=== PATIENT | female | born 1980 | race Caucasian/White ===

== ENCOUNTER 2022-03-25 07:01 | Emergency (ER) | payer OTHER ==
[2022-03-25] MEDS ORDERED: SODIUM CHLORIDE 0.9% 1,000 ML IV STA (07:22)
[2022-03-25] MEDS ORDERED: ONDANSETRON 4 MG/2 ML VIAL IVP STA (07:22)
[2022-03-25 07:24] LABS: BASOPHILS % (AUTO) 0.3 %; EOSINOPHILS % (AUTO) 0.1 %; HCT - HEMATOCRIT 40.8 % (37.0-47.0); HGB - HEMOGLOBIN 13.7 g/dL (12.0-16.0); LYMPHOCYTES # (AUTO) 1.2 10^3/uL (1.5-3.5); MEAN CORPUSCULAR HEMOGLOBIN 29.1 pg (27.0-31.0); MEAN CORPUSCULAR HGB CONC 33.6 g/dL (32.0-36.0); MEAN CORPUSCULAR VOLUME 86.8 fL (81.0-99.0); MONOCYTES # (AUTO) 0.6 10^3/uL (0.0-1.0); MONOCYTES % (AUTO) 3.6 %; NEUTROPHILS # (AUTO) 13.2 10^3/uL (1.5-6.6); PLT - PLATELET COUNT 327 10^3/uL (130-450); RED CELL DISTRIBUTION WIDTH 13.3 % (12.0-15.0); WHITE BLOOD COUNT 15.2 x10^3/uL (4.8-10.8)
--- NOTE | 2022-03-25 07:25 | ED Physician Documentation ---
PD HPI FEMALE - Stated complaint Stated Complaint: VOMITING - Chief complaint Chief Complaint: Abd Pain - History obtained from History obtained from: Patient - Additional information Additional information: Patient is a 41-year-old female with history of endometriosis, presenting for evaluation of nausea and vomiting and lower abdominal cramping. Patient has had the nausea and vomiting since Tuesday. She was able to tolerate p.o. yesterday.However since this morning she has not been able to keep anything down. She reports having a history of hyperemesis with previous pregnancies and has used Zofran and promethazine in the past. She denies other complications with previous pregnancies. She has had a bowel resection in the past due to her endometriosis. Her last bowel movement was today. She denies vaginal bleeding or discharge. She denies fever, chest pain or difficulty breathing. Patient reports irregular periods due to her history of endometriosis and has been off control since November with irregular episodes of bleeding since then.She took a positive home test on Tuesday. Review of Systems Constitutional: denies: Fever Nose: denies: Congestion Cardiac: denies: Chest pain / pressure Respiratory: denies: Dyspnea GI: reports: Abdominal Pain (Lower abdominal cramping), Nausea, Vomiting : denies: Dysuria Musculoskeletal: denies: Back pain Neurologic: denies: Headache PD PAST MEDICAL HISTORY - Allergies Allergies/Adverse Reactions: Allergies Allergy/AdvReac Type Severity Reaction Status Date / Time No Known Drug Allergies Allergy Verified 03/25/22 07:10 PD ED PE NORMAL - General General: Alert and oriented X 3, No acute distress, Well developed/nourished - HEENT HEENT: Atraumatic, Moist mucous membranes - Neck Neck: Supple, no meningeal sign - Cardiac Cardiac: RRR, No murmur, Strong equal pulses - Respiratory Respiratory: No respiratory distress, Clear bilaterally - Abdomen Abdomen: Normal bowel sounds, Soft, Non tender, Non distended, Other (Mild suprapubic tenderness) - Derm Derm: Warm and dry - Extremities Extremities: No edema - Neuro Neuro: Normal speech Results - Vitals Vitals: Vital Signs - 24 hr 03/25/22 03/25/22 07:05 10:19 Temperature 36.2 C L Heart Rate 74 71 Respiratory 18 18 Rate Blood Pressure 123/66 124/68 O2 Saturation 99 100 Oxygen O2 Source Room air - Labs Labs: Laboratory Tests 03/25/22 03/25/22 03/25/22 07:15 07:15 07:15 WBC 15.2 H RBC 4.70 Hgb 13.7 Hct 40.8 MCV 86.8 MCH 29.1 MCHC 33.6 RDW 13.3 Plt Count 327 MPV 10.0 Neut # (Auto) 13.2 H Lymph # (Auto) 1.2 L [place] # (Auto) 0.6 Eos # (Auto) 0.0 Baso # (Auto) 0.0 Absolute Nucleated RBC 0.00 Nucleated RBC % 0.0 Sodium 135 Potassium 3.4 L Chloride 103 Carbon Dioxide 21 Anion Gap 11.0 BUN 11 Creatinine 0.6 Estimated GFR (MDRD) 111 Glucose 134 H Calcium 9.2 Total Bilirubin 0.8 AST 32 ALT 60 Alkaline Phosphatase 72 Total Protein 7.7 Albumin 4.8 Globulin 2.9 Albumin/Globulin Ratio 1.7 Lipase 37 HCG, Quant 34352.00 Blood Type 03/25/22 07:20 WBC RBC Hgb Hct MCV MCH MCHC RDW Plt Count MPV Neut # (Auto) Lymph # (Auto) [place] # (Auto) Eos # (Auto) Baso # (Auto) Absolute Nucleated RBC Nucleated RBC % Sodium Potassium Chloride Carbon Dioxide Anion Gap BUN Creatinine Estimated GFR (MDRD) Glucose Calcium Total Bilirubin AST ALT Alkaline Phosphatase Total Protein Albumin Globulin Albumin/Globulin Ratio Lipase HCG, Quant Blood Type O POSITIVE PD MEDICAL DECISION MAKING - ED course Complexity details: reviewed results, re-evaluated patient, d/w patient ED course: Patient with nausea and vomiting in early . Reports lower abdominal cramping. Labs reviewed and overall reassuring. Mild hypokalemia which was repleted orally. Patient feeling better after medications here. Ultrasound was obtained given reports of lower abdominal cramping with intrauterine and cardiac activity detected. Patient has school based therapist appointment in 1 hour. Patient not able to give UA here but is tolerating p.o. Patient counseled on concerning symptoms to return for. [id number] - Some nausea but improved and tolerating sips of water. Has not been able to give UA. [place] Has prescription for Phenergan. Departure - Departure Disposition: 01 Home, Self Care Clinical Impression: Vomiting during Condition: Stable Instructions: ED Preg Morning Sickness Follow-Up: STEPHANIE Yuan [Provider Group] Comments: Your ultrasound shows that you are approximately 7 weeks and 5 days along with this . You are given medication to help with your nausea and vomiting. Please continue to use the promethazine you were prescribed. I would also recommend starting a vitamin. Please [place] If You have any worsening symptoms please return to the emergency department. A single living intrauterine gestation is present with a heart rate of 167 bpm. [place]-rump length is 14 mm, corresponding to a 7 week 5 day gestation. Measurement variability in dating: +/- 4 weeks by LMP, +/- 7 days by mean sac diameter (use before 6 weeks gestation if crown- rump length not able to be measured), +/- 5 days by crown-rump length (6-12 weeks gestation). Discharge Date/Time: 03/25/22 10:19
[2022-03-25 07:40] LABS: ALBUMIN 4.8 g/dL (3.2-5.5); ALBUMIN/GLOBULIN RATIO 1.7 (1.0-2.2); BILIRUBIN,TOTAL 0.8 mg/dL (0.2-1.0); CREATININE 0.6 mg/dL (0.4-1.0); TOTAL PROTEIN 7.7 g/dL (6.7-8.2)
[2022-03-25 07:50] LABS: CALCIUM 9.2 mg/dL (8.5-10.3); POTASSIUM 3.4 mmol/L (3.5-5.0)
[2022-03-25] MEDS ORDERED: PROMETHAZINE INJ 25 MG in SODIUM CHLORIDE 0.9% 50 ML IV STA (08:02)
--- NOTE | 2022-03-25 09:19 | Ultrasound Report ---
PROCEDURE: OB First Trimester INDICATIONS: cramping/pain/ of unknown date OUTSIDE/PRIOR DATING DATA: Last menstrual period (LMP): Unknown. LMP-based estimated date of delivery (MONI): Not applicable. First dating scan (date and location): 03/25/2022. Estimated date of delivery (MONI) from first dating scan: 11/06/2022. TECHNIQUE: Real-time scanning was performed of the fetus and maternal pelvic organs, with image documentation. COMPARISON: None FINDINGS: A single living intrauterine gestation is present with a heart rate of [address] [place] -rump length is 14 mm, corresponding to a 7 week 5 day gestation. Measurement variability in dating: +/- 4 weeks by LMP, +/- 7 days by mean sac diameter (use before 6 weeks gestation if crown-rump antoine th not able to be measured), +/- 5 days by crown-rump length (6-12 weeks gestation). Maternal organs: Right ovary is surgically absent. Left ovary is not seen. IMPRESSION: Single living early intrauterine gestation as described above. Routine clinical and sonographic follo w-up recommended. Reviewed by: Marie Frances MD on 03/25/2022 9:18 AM PDT Approved by: Marie Frances MD on 03/25/2022 9:18 AM PDT Station ID: [id number]
[2022-03-25] MEDS ORDERED: POTASSIUM CHLORIDE 20 MEQ TABLET PO STA (09:57)
[2022-03-25 10:20] VITALS: BP 124/68
== END 2022-03-25 10:19 | disposition home or self-care (01) ==
LOC: ED 07:01
DX: O21.0 Mild hyperemesis gravidarum (principal); Z3A.00 Weeks of gestation of pregnancy not specified
CPT/HCPCS: 36415; 76801; 80053; 83690; 84702; 85025; 86900; 86901; 96365; 96375; 99282; 99284; A9270; J7040

== ENCOUNTER 2022-10-14 09:00 | Outpatient (CLI) | payer OTHER | END 2022-10-14 23:59 | disposition home or self-care (01) | LOC: LAB 09:00 | PROVIDERS: ATTEND Obstetrics & Gynecology | DX: Z36.85 Encounter for antenatal screening for Streptococcus B (principal) | CPT/HCPCS: 87797 ==

== ENCOUNTER 2022-10-27 17:04 | Inpatient (IN) | payer OTHER ==
[2022-10-27] MEDS ORDERED: OXYTOCIN/SODIUM CHLORIDE 500 ML IV ONE (17:20)
[2022-10-27] MEDS ORDERED: OXYTOCIN 10 UNIT/ML VIAL ONE (17:20)
[2022-10-27] MEDS ORDERED: LACTATED RINGERS 1,000 ML ONE (17:20)
[2022-10-27] MEDS ORDERED: miSOPROStoL 200 MCG TABLET ONE (17:20)
[2022-10-27] MEDS ORDERED: TERBUTALINE 1 MG/ML VIAL SUBQ PRN (17:36)
[2022-10-27] MEDS ORDERED: TRANEXAMIC ACID IN NACL 1,000 MG/100 ML BAG IV PRN ×2 (17:36→18:16)
[2022-10-27] MEDS ORDERED: OXYTOCIN/SODIUM CHLORIDE 500 ML IV PRN ×2 (17:36→18:16)
[2022-10-27] MEDS ORDERED: miSOPROStoL 200 MCG TABLET BC PRN ×2 (17:36→18:16)
[2022-10-27] MEDS ORDERED: NIFEdipine 10 MG CAPSULE PO PRN ×2 (17:36→18:16)
[2022-10-27] MEDS ORDERED: OXYTOCIN 10 UNIT/ML VIAL IM PRN ×2 (17:36→18:16)
[2022-10-27] MEDS ORDERED: miSOPROStoL 200 MCG TABLET PR PRN ×2 (17:36→18:16)
[2022-10-27] MEDS ORDERED: SODIUM CHLORIDE FLUSH 0.9% 10 ML SYRINGE IVP PRN ×2 (17:36→18:16)
[2022-10-27] MEDS ORDERED: CARBOPROST TROMETHAMINE 250 MCG/ML AMP IM PRN ×2 (17:36→18:16)
[2022-10-27] MEDS ORDERED: hydrALAZINE INJ 20 MG/ML VIAL IVP PRN ×4 (17:36→18:16)
[2022-10-27] MEDS ORDERED: lidocaine 1% 20 ML MDV ID PRN (17:36)
[2022-10-27] MEDS ORDERED: METHYLERGONOVINE 0.2 MG/ML VIAL IM PRN ×2 (17:36→18:16)
[2022-10-27] MEDS ORDERED: fentaNYL 100 MCG/2 ML VIAL IVP PRN (17:36)
[2022-10-27] MEDS ORDERED: LABETALOL 20 MG/4 ML SYRINGE IVP PRN ×6 (17:36→18:16)
[2022-10-27] MEDS ORDERED: SIMETHICONE CHEW 80 MG TABLET PO PRN (17:38)
--- NOTE | 2022-10-27 17:39 | HISTORY & PHYSICAL EXAMINATION ---
Admit History - Visit Reason Visit Reason: Contractions - : 3 Parity: 2 Risk/History: positive: None Complications This : positive: None - Mother's Labs Mother's Blood Type: positive: O Mother's RH: positive: Positive GBS: positive: Group B Step Negative Rubella Status: positive: Immune - Other Maternal History Other Maternal History: HPI: 41-year-old -0-0-2 at 38 weeks 4 days gestation presenting with contractions that started at 11:00 this morning. These have been becoming increasingly intense and frequent. Her water broke on the way here. She has good movement. No MELLO/BV or RUQP. No vaginal bleeding. Denies nausea and vomiting. Denies urinary urgency or dysuria. All other symptoms reviewed and were negative except per HPI. Course LMP: Unknown MONI by LMP: Unknown US Date 03/25/2022, US Age 7 weeks 5 days, MONI by ultrasound: 11/06/2022 Final MONI: 11/06/2022 by 7-week ultrasound Problems: Depression with history of severe depression: Mood remains good. Continue citalopram daily. Extensive surgical history: If needing a section, would benefit from going to a larger facility. If unable to transfer, would benefit from second surgeon. 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 Followed by left ovarian cystectomy. In 2018 had a laparoscopic excision of an endometrioma resulting in a bowel resection. GERD: Continue omeprazole 40 mg daily Nausea and vomiting of . Continue Zofran as needed. Suggested Reglan, but tried previously and did not help. Vomiting every 2 to 3 days. Pre- Weight:168 BMI: 26.3 O pos/Rubella imm VZV:imm Genetic testin06/09/22 - neg, AFP low risk FAS:07/15/22 EFW 75 percentile, ant placenta, 3VC, KATARZYNA -normal Glucola 105 Influenza:03/2022 TDAP 09/08/22 Covid: X2 October 2020 GBS @ ___ wks HSV: denies Breast pump Rx 09/08/22 MOD:, Discussed 41 week induction if not in labor pp contraception:wants hysterectomy (endometriosis). Likely OCPs in the interim. pap:04/2022- normal per pt Initial GC/CT:with PAP and negative per pt PMH Endometriosis Anxiety/depression Severe depression With hyperemesis gravidarum PSH Extensive surgical history including ovarian cystectomy for fibrothecoma, unilateral oophorectomy, laparoscopic excision of endometrioma, large bowel resection, breast augmentation OB History -0-0-3 1. 08/03/2014, 40 weeks, , female, 6 pounds 10 ounces 2. 10/17/2017, 39 weeks, , female, 6 pounds 11 ounces 3. Current gestation SH Denies tobacco, alcohol, drugs Family History Mother: Diabetes, hypertension Father: Diabetes, hypertension Sister: Breast cancer Grandfather: Prostate cancer Allergies No known drug allergies Medications Occasional Zofran, citalopram Physical exam: General: Alert, oriented, actively pushing Head: Normal cephalic atraumatic Eyes: PERRLA, extraocular motions intact. Respiratory: Mild tachypnea subjectively. No accessory muscle use, normal respiratory effort. Abdomen: Gravid, nontender, nondistended Extremities: Normal range of motion Neuro: Oriented x3. Normal movements Psych: Appropriate mood and affect. SVE: /+2 Plan 41-year-old -0-0-2 at 38 weeks 4 days gestation admitted for term labor 1. Term labor -Admitted pushing and delivered precipitously. See procedure note for details. 2. 38 weeks gestation 3. Depression -Continue home medications. Meds/Allgy - Allergies Allergies/Adverse Reactions: Allergies Allergy/AdvReac Type Severity Reaction Status Date / Time No Known Drug Allergies Allergy Verified 03/25/22 07:10 Plan for Labor - Plan For Labor I expect patient to be DC'd or transferred within 96 hours.: Yes
--- OUTSIDE RECORDS SUMMARY | 2022-10-27 17:39 | EXTERNAL MEDICAL SUMMARY RPT | Continuity of Care Document ---
:1980 Author Organization [facility] Address [address] [place] [address] Phone Care Team Providers Name Role Phone Tonya Royal Unavailable Unavailable Allergies No information. Encounters No information. Functional Status No information. Immunizations No information. Medications No information. Problems date description facility 2022-08-11 15:08 Encounter for supervision of other [facility] , second 2022-08-11 15:08 27 weeks gestation of [facility] 2022-08-11 15:51 Encounter for supervision of other [facility] , second 2022-08-11 15:51 22 weeks gestation of [facility] 2022-08-12 00:53 Encounter for supervision of other [facility] , second 2022-08-12 00:53 27 weeks gestation of [facility] Procedures No information. Results/Labs test date author facility value unit interpret ation Result panel 1 (unknown) (no (unknown) (unknown) (no value) (units (unk nown) date) unknown) (unknown) (no (unknown) (unknown) #180 caps (units (unkn own) date) 07/19/22 [Rx unknown) Confirmed 08/11/22] (unknown) (no (unknown) (unknown) (+3 lb) 102/60 N (units (unknown) date) unknown) (unknown) (no (unknown) (unknown) (+7 lb) 118/62 N (units (unknown) date) unknown) (unknown) (no (unknown) (unknown) (+9 lb) 118/60 N (units (unknown) date) unknown) (unknown) (no (unknown) (unknown) (gender left off (units (unknown) date) report per unknown) request). Her labs were normal. To lab (unknown) (no (unknown) (unknown) Genetic (units (unkn own) date) Screening/Teratol unknown) ogy Counseling - Includes patient, baby's father, or (unknown) (no (unknown) (unknown) -?-?-?-?-?-?-?-? (units (unknown) date) -?-?-?-? unknown) (unknown) (no (unknown) (unknown) 07/16/22 (units (unkno wn) date) unknown) (unknown) (no (unknown) (unknown) 08/03/14 40.2 7 (units (unknown) date) 6 lb 10 oz Female unknown) vaginal live - full te (unknown) (no (unknown) (unknown) 08/11/22 (units (unkno wn) date) unknown) (unknown) (no (unknown) (unknown) 08/11/22] (units (unkn own) date) unknown) (unknown) (no (unknown) (unknown) 10/17/18 39.6 2 (units (unknown) date) 6 lb 11 oz Female unknown) vaginal live - full term (unknown) (no (unknown) (unknown) [id number] (units (unkno wn) date) unknown) (unknown) (no (unknown) (unknown) 04/28/22 (units (unkno wn) date) unknown) (unknown) (no (unknown) (unknown) 06/09/22 (units (unkno wn) date) unknown) (unknown) (no (unknown) (unknown) 12w 4d 168 lb (units ( unknown) date) unknown) (unknown) (no (unknown) (unknown) 14:49 (units (unkno wn) date) unknown) (unknown) (no (unknown) (unknown) 18w 4d 172 lb (units ( unknown) date) unknown) (unknown) (no (unknown) (unknown) 2 years other (units ( unknown) date) [place] unknown) (unknown) (no (unknown) (unknown) 23w 6d 174 lb (units ( unknown) date) unknown) (unknown) (no (unknown) (unknown) AMA age 41. (units (unk nown) date) desired cell free unknown) DNA without gender >>cfDNA normal low risk. MSAFP (unknown) (no (unknown) (unknown) Abnormal lab (units (u nknown) date) values 1st unknown) trimester: discussed (unknown) (no (unknown) (unknown) Add'l Plan (units (unk nown) date) Details unknown) (unknown) (no (unknown) (unknown) Age/Sex: 41 / F (units (unknown) date) Date of Service: unknown) (unknown) (no (unknown) (unknown) Allergies (units (unkn own) date) unknown) (unknown) (no (unknown) (unknown) [place], [place] (units ( unknown) date) [id number] unknown) (unknown) (no (unknown) (unknown) Anesthesia (units (unk nown) date) unknown) (unknown) (no (unknown) (unknown) Aneuploidy (units (unkn own) date) Screening unknown) Offered: Accepted (Wants CFDNA, doesn't want to know sex of (unknown) (no (unknown) (unknown) Anticipated (units (un known) date) course of unknown) care: discussed (unknown) (no (unknown) (unknown) Anxiety (units (unkno wn) date) unknown) (unknown) (no (unknown) (unknown) Assessment and (units (unknown) date) Plan unknown) (unknown) (no (unknown) (unknown) Attending Dr: (units ( unknown) date) Ray Fierro unknown) (unknown) (no (unknown) (unknown) BMI 27.7 (units (unkno wn) date) unknown) (unknown) (no (unknown) (unknown) BP 98/56 L (units (unk nown) date) unknown) (unknown) (no (unknown) (unknown) Isabela returns (units ( unknown) date) today for her GUERA unknown) visit now at 23+ 6 weeks gestational age. (unknown) (no (unknown) (unknown) (units (unkno wn) date) Plan/Preferences unknown) (unknown) (no (unknown) (unknown) Planning (units (unknown) date) unknown) (unknown) (no (unknown) (unknown) Blood Pressure (units (unknown) date) Location Rt unknown) brachial (unknown) (no (unknown) (unknown) Blood (units (unkno wn) date) transfusions?: unknown) yes (Never had but would accept) (unknown) (no (unknown) (unknown) Breastfeed Preg (units (unknown) date) Comp Name unknown) (unknown) (no (unknown) (unknown) Current Estimate (units (unknown) date) 05/13/23 unknown) Ultrasound #1 27w 4d (unknown) (no (unknown) (unknown) Current (units (unkno wn) date) History unknown) (unknown) (no (unknown) (unknown) DNA (units (unkno wn) date) unknown) (unknown) (no (unknown) (unknown) : 1980 (units (unknown) date) Acct:[id number] unknown) (unknown) (no (unknown) (unknown) Date of positive (units (unknown) date) home unknown) test: 03/21/22 (unknown) (no (unknown) (unknown) Date (units (unkno wn) date) unknown) (unknown) (no (unknown) (unknown) Del. Date (units (unkn own) date) GA/Weeks Labor unknown) Lgth Wt Sex Route Outcome Anesthesia Place (unknown) (no (unknown) (unknown) Delivery Date: (units (unknown) date) 08/03/14 Last unknown) Updated by: Donna Cedillo RN (unknown) (no (unknown) (unknown) Delivery Date: (units (unknown) date) 10/17/18 Last unknown) Updated by: Donna Cedillo RN (unknown) (no (unknown) (unknown) Delv (units (unkno wn) date) unknown) (unknown) (no (unknown) (unknown) Denies Congenital (units (unknown) date) Heart Defect, unknown) Denies Down Syndrome, Denies Muscular Dystrophy, (unknown) (no (unknown) (unknown) Denies Maternal (units (unknown) date) Metabolic unknown) Disorder (EG,TYPE 1 Diabetes, PKU) and Denies Patient (unknown) (no (unknown) (unknown) Denies Neural (units ( unknown) date) Tube Defect unknown) (Meningomyelocele , Spina Bifida, or Anencephaly), (unknown) (no (unknown) (unknown) Denies Sickle (units ( unknown) date) Cell Disease or unknown) Trait (), Denies Hemophilia or other blood (unknown) (no (unknown) (unknown) Denies Rj-Sachs (units (unknown) date) (Ashkenazi unknown) Gnosticist, Cajun, English Belizean), Denies Adelaida (unknown) (no (unknown) (unknown) Denies other (units (u nknown) date) unknown) (unknown) (no (unknown) (unknown) Denies over the (units (unknown) date) counter unknown) medications, Denies alcohol, Denies illicit drugs and (unknown) (no (unknown) (unknown) Depression (units (unk nown) date) unknown) (unknown) (no (unknown) (unknown) Depression: (units (un known) date) discussed unknown) (unknown) (no (unknown) (unknown) Dept at (units (unkno wn) date) . unknown) (unknown) (no (unknown) (unknown) Diet and (units (unkno wn) date) Exercise unknown) (unknown) (no (unknown) (unknown) Disease (units (unkno wn) date) (Ashkenazi unknown) Gnosticist), Denies Familial Dysautonomia (Ashkenazi Gnosticist), (unknown) (no (unknown) (unknown) Documented By: (units (unknown) date) Ray Fierro unknown) 08/11/22 1447 (unknown) (no (unknown) (unknown) Draft (units (unkno wn) date) unknown) (unknown) (no (unknown) (unknown) MONI Calculator (units (unknown) date) unknown) (unknown) (no (unknown) (unknown) EGA Weight BP (units ( unknown) date) UGlucose unknown) (unknown) (no (unknown) (unknown) Endometriosis (units ( unknown) date) () unknown) (unknown) (no (unknown) (unknown) Estimated (units (unkn own) date) Delivery Date unknown) Method Current (unknown) (no (unknown) (unknown) Exercise and (units (u nknown) date) activity, unknown) work/environmenta l/hazards, Sexual activity, X-ray (unknown) (no (unknown) (unknown) Expected (units (unkno wn) date) Delivery unknown) Route/Plan (unknown) (no (unknown) (unknown) Family History (units (unknown) date) (Updated 04/13/22 unknown) @ 13:17 by Donna Cedillo RN) (unknown) (no (unknown) (unknown) Family/Other (units (u nknown) date) Breast cancer unknown) (unknown) (no (unknown) (unknown) Family/Other (units (u nknown) date) Liver cancer unknown) (unknown) (no (unknown) (unknown) Family/Other (units (u nknown) date) Lung cancer unknown) (unknown) (no (unknown) (unknown) Family/Other (units (u nknown) date) Stomach cancer unknown) (unknown) (no (unknown) (unknown) Father Diabetes (units (unknown) date) mellitus unknown) (unknown) (no (unknown) (unknown) Father of Baby: (units (unknown) date) same unknown) (unknown) (no (unknown) (unknown) [facility] unknown) (unknown) (no (unknown) (unknown) First Trimester (units (unknown) date) Education unknown) Checklist (unknown) (no (unknown) (unknown) (units (unkno wn) date) unknown) (unknown) (no (unknown) (unknown) Genetic (units (unkno wn) date) Screening + unknown) Counseling (unknown) (no (unknown) (unknown) Genetic (units (unkno wn) date) Screening unknown) (unknown) (no (unknown) (unknown) Grandfather (units (un known) date) Prostate cancer unknown) (unknown) (no (unknown) (unknown) 3 (units (unkn own) date) Multiple births 0 unknown) (unknown) (no (unknown) (unknown) H/O breast (units (unk nown) date) implant unknown) () (unknown) (no (unknown) (unknown) H/O ovarian (units (un known) date) cystectomy unknown) () (unknown) (no (unknown) (unknown) H/O unilateral (units (unknown) date) oophorectomy unknown) (unknown) (no (unknown) (unknown) HIV risk (units (unkno wn) date) evaluation: low unknown) risk (unknown) (no (unknown) (unknown) Health Center (units ( unknown) date) Education unknown) (unknown) (no (unknown) (unknown) Health center (units ( unknown) date) information: unknown) nature of practice discussed, personnel (unknown) (no (unknown) (unknown) Height 5 ft 7 in (units (unknown) date) unknown) (unknown) (no (unknown) (unknown) Hepatitis C risk (units (unknown) date) evaluation: low unknown) risk (unknown) (no (unknown) (unknown) History of (units (unk nown) date) Anxiety and unknown) depression and depression with (unknown) (no (unknown) (unknown) History of (units (unk nown) date) Hepatitis B: No unknown) (unknown) (no (unknown) (unknown) History of (units (unk nown) date) Hepatitis C: No unknown) (unknown) (no (unknown) (unknown) [facility] (units (u nknown) date) unknown) (unknown) (no (unknown) (unknown) [facility] (units (u nknown) date) Chorea, Denies unknown) Other inherited genetic or chromosomal disorder, (unknown) (no (unknown) (unknown) Tez (units (unknown) date) unknown) (unknown) (no (unknown) (unknown) Hx # (units (u nknown) date) Pregnancies 0 unknown) Elective abortions 0 (unknown) (no (unknown) (unknown) Hx # Term (units (unkn own) date) Pregnancies 2 unknown) Ectopic pregnancies 0 (unknown) (no (unknown) (unknown) Hyperemesis (units (un known) date) gravidarum unknown) (unknown) (no (unknown) (unknown) Hypertension (units (u nknown) date) unknown) (unknown) (no (unknown) (unknown) will be (units (unknown) date) adopted?: no unknown) (unknown) (no (unknown) (unknown) Infection (units (unkn own) date) History unknown) (unknown) (no (unknown) (unknown) Infectious (units (unk nown) date) Disease Education unknown) (unknown) (no (unknown) (unknown) Infectious (units (unk nown) date) disease exposure: unknown) chicken pox immunity discussed, hepatitis risk (unknown) (no (unknown) (unknown) Initial Weight: (units (unknown) date) 165 lb unknown) (unknown) (no (unknown) (unknown) Initials (units (unkno wn) date) unknown) (unknown) (no (unknown) (unknown) Intake Clinical (units (unknown) date) Staff unknown) (unknown) (no (unknown) (unknown) Intake Note: (units (u nknown) date) unknown) (unknown) (no (unknown) (unknown) Intake performed (units (unknown) date) by: Mike Yip unknown) (unknown) (no (unknown) (unknown) Intake (units (unkno wn) date) unknown) (unknown) (no (unknown) (unknown) Irregular (units (unkn own) date) menstrual cycle unknown) (unknown) (no (unknown) (unknown) [place], [place] 3 (units (u nknown) date) unknown) (unknown) (no (unknown) (unknown) Live with (units (unkn own) date) someone with TB unknown) or exposed to TB: No (unknown) (no (unknown) (unknown) Loc: [facility] (units (unkno wn) date) unknown) (unknown) (no (unknown) (unknown) Marital status: (units (unknown) date) unknown) (unknown) (no (unknown) (unknown) Medical History (units (unknown) date) (Updated 07/16/22 unknown) @ 17:47 by Ray Fierro MD) (unknown) (no (unknown) (unknown) Medications (units (un known) date) unknown) (unknown) (no (unknown) (unknown) Mother Diabetes (units (unknown) date) mellitus unknown) (unknown) (no (unknown) (unknown) N No no (units (unkno wn) date) unknown) (unknown) (no (unknown) (unknown) N Yes no 140 24 (units (unknown) date) N/A absent 4 wks unknown) (unknown) (no (unknown) (unknown) Notes (units (unkno wn) date) unknown) (unknown) (no (unknown) (unknown) Number of Living (units (unknown) date) Children 2 unknown) (unknown) (no (unknown) (unknown) Number of (units (unkn own) date) fetuses:: Single unknown) (unknown) (no (unknown) (unknown) Nutrition and (units ( unknown) date) weight gain unknown) counseling: special diet: discussed (unknown) (no (unknown) (unknown) OB Office Visit (units (unknown) date) unknown) (unknown) (no (unknown) (unknown) OB Visit Log (units (u nknown) date) unknown) (unknown) (no (unknown) (unknown) On control (units (unknown) date) at conception?: unknown) No (unknown) (no (unknown) (unknown) PFSH (units (unkno wn) date) unknown) (unknown) (no (unknown) (unknown) Painful (units (unkno wn) date) menstrual periods unknown) (unknown) (no (unknown) (unknown) Para 2 (units (unkno wn) date) Spontaneous unknown) abortions 0 (unknown) (no (unknown) (unknown) Partner history (units (unknown) date) of STD: chlamydia unknown) (2004, treated and cured) (unknown) (no (unknown) (unknown) Partner history (units (unknown) date) of genital unknown) herpes: No (unknown) (no (unknown) (unknown) Partner: Tez (units (unknown) date) Saad unknown) (unknown) (no (unknown) (unknown) Past Pregnancies (units (unknown) date) unknown) (unknown) (no (unknown) (unknown) Patient's age 37 (units (unknown) date) years or older as unknown) of estimated date of delivery: Yes (unknown) (no (unknown) (unknown) Patient: (units (unkno wn) date) Magda Nash Khadra unknown) MR#: [id number] (unknown) (no (unknown) (unknown) Floral Clerk: (units ( unknown) date) MICHAEL Blair unknown) (unknown) (no (unknown) (unknown) Pelvic neoplasm (units (unknown) date) unknown) (unknown) (no (unknown) (unknown) Personal history (units (unknown) date) of STD: chlamydia unknown) (2004, treated and cured) (unknown) (no (unknown) (unknown) Personal history (units (unknown) date) of genital unknown) herpes: No (unknown) (no (unknown) (unknown) Position Sitting (units (unknown) date) unknown) (unknown) (no (unknown) (unknown) (units (unk nown) date) depression unknown) (unknown) (no (unknown) (unknown) Precipitous (units (un known) date) delivery 2nd unknown) child (-2 hours active labor) (unknown) (no (unknown) (unknown) (units (unkn own) date) History unknown) (unknown) (no (unknown) (unknown) type:: (units (unknown) date) Other Normal unknown) (unknown) (no (unknown) (unknown) (units (unkno wn) date) Education unknown) (unknown) (no (unknown) (unknown) Initial (units (unknown) date) Assessment unknown) (unknown) (no (unknown) (unknown) (units (unkno wn) date) Specific unknown) Issues/Plans (unknown) (no (unknown) (unknown) (units (unkno wn) date) Testing: unknown) discussed (unknown) (no (unknown) (unknown) Visit (units (unknown) date) unknown) (unknown) (no (unknown) (unknown) (units (unkno wn) date) education packet: unknown) Child education/plan, symptoms, (unknown) (no (unknown) (unknown) Primary Care (units (u nknown) date) Provider: MICHAEL Raymond unknown) Lian (unknown) (no (unknown) (unknown) Primary Ob (units (unk nown) date) Provider: unknown) Tonya Royal (unknown) (no (unknown) (unknown) Prior (units (unkno wn) date) GBS-Infected unknown) child: No (unknown) (no (unknown) (unknown) Providers (units (unkn own) date) unknown) (unknown) (no (unknown) (unknown) Pt here for OB (units (unknown) date) Check unknown) (unknown) (no (unknown) (unknown) 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 MONI is set (unknown) (no (unknown) (unknown) Magda presents (units (unknown) date) for a GUERA visit @ unknown) 18wk4d. Doing overall well. Her nausea (unknown) (no (unknown) (unknown) Recent travel (units ( unknown) date) outside of unknown) country?: No (unknown) (no (unknown) (unknown) Recurrent (units (unkn own) date) loss or unknown) a stillbirth: No (unknown) (no (unknown) (unknown) Reports Other (units ( unknown) date) (nephew w/ health unknown) problems r/t exreme prematurity.); (unknown) (no (unknown) (unknown) Safety (units (unkno wn) date) unknown) (unknown) (no (unknown) (unknown) She relates that (units (unknown) date) she had her unknown) growth ultrasound performed yesterday at [facility] but (unknown) (no (unknown) (unknown) Signed By: (units (unk nown) date) unknown) (unknown) (no (unknown) (unknown) Sister Breast (units ( unknown) date) cancer unknown) (unknown) (no (unknown) (unknown) Sister had (units (unk nown) date) breast cancer age unknown) 46, pt has not yet started screening mammo (unknown) (no (unknown) (unknown) Skin cancer (units (un known) date) unknown) (unknown) (no (unknown) (unknown) Smoking Status: (units (unknown) date) Never smoker unknown) (unknown) (no (unknown) (unknown) Social History (units (unknown) date) unknown) (unknown) (no (unknown) (unknown) Support (units (unkno wn) date) Person(s):: unknown) Tez (unknown) (no (unknown) (unknown) Surgical History (units (unknown) date) (Updated 05/03/22 unknown) @ 07:12 by Tonya Royal MD) (unknown) (no (unknown) (unknown) Surrogate (units (unkn own) date) ?: no unknown) (unknown) (no (unknown) (unknown) Symptoms since (units (unknown) date) LMP: Reports unknown) amenorrhea, nausea, vomiting, fatigue, breast (unknown) (no (unknown) (unknown) TR Yes no 136 18 (units (unknown) date) absent 4wk unknown) (unknown) (no (unknown) (unknown) Tdap status: (units (u nknown) date) immunized unknown) (unknown) (no (unknown) (unknown) Teratogen (units (unkn own) date) Exposures since unknown) LMP/Conception: Denies prescription medications, (unknown) (no (unknown) (unknown) Testing (units (unkno wn) date) Education unknown) (unknown) (no (unknown) (unknown) Testing (units (unkno wn) date) education unknown) completed: group B strep, Spina bifida testing and Cell Free (unknown) (no (unknown) (unknown) This note may (units ( unknown) date) have been all or unknown) partially generated using voice recognition (unknown) (no (unknown) (unknown) Tobacco + (units (unkn own) date) Substance Use unknown) (unknown) (no (unknown) (unknown) Tobacco Status (units (unknown) date) unknown) (unknown) (no (unknown) (unknown) Trimester:: 2nd (units (unknown) date) Trimester unknown) (14-<28wks) (unknown) (no (unknown) (unknown) Type(s) of (units (unk nown) date) exercise: none unknown) (unknown) (no (unknown) (unknown) UProtein Movement (units (unknown) date) PreLabor FHR Fndl unknown) Ht Pres Edema Cerv Exam US/Comment Next Appt (unknown) (no (unknown) (unknown) Varicella/chicke (units (unknown) date) n pox status: unknown) previous disease (unknown) (no (unknown) (unknown) Visit Date: (units (un known) date) 07/16/22 Last unknown) Updated by: Ray Fierro MD (unknown) (no (unknown) (unknown) Visit Date: (units (un known) date) 04/28/22 Last unknown) Updated by: Tonya Royal MD (unknown) (no (unknown) (unknown) Visit Date: (units (un known) date) 06/09/22 Last unknown) Updated by: Tonya Royal MD (unknown) (no (unknown) (unknown) Visit Reasons: (units (unknown) date) OB ck unknown) (unknown) (no (unknown) (unknown) Vitals (units (unkno wn) date) unknown) (unknown) (no (unknown) (unknown) Vitamins and (units (u nknown) date) iron, Diet and unknown) weight gain, Fish and mercury intake, Caffeine use, (unknown) (no (unknown) (unknown) WG (units (unkno wn) date) unknown) (unknown) (no (unknown) (unknown) Weeks (units (unkno wn) date) gestation:: 27 unknown) (unknown) (no (unknown) (unknown) Weight 177 lb (units ( unknown) date) unknown) (unknown) (no (unknown) (unknown) Zika virus (units (unk nown) date) exposure: No unknown) (unknown) (no (unknown) (unknown) [Rx Confirmed (units ( unknown) date) 08/11/22] unknown) (unknown) (no (unknown) (unknown) alcohol intake: (units (unknown) date) former (rarely unknown) when not ) (unknown) (no (unknown) (unknown) amh (units (unkno wn) date) unknown) (unknown) (no (unknown) (unknown) and Influenza (units ( unknown) date) vaccine (Annual unknown) flu, Covid x2) (unknown) (no (unknown) (unknown) anyone in either (units (unknown) date) family with: unknown) (unknown) (no (unknown) (unknown) better with (units (un known) date) Zofran now. No unknown) bleeding or cramping. Due for screening Pap, done (unknown) (no (unknown) (unknown) ) (units (unknown) date) unknown) (unknown) (no (unknown) (unknown) by a 7 week (units (un known) date) ultrasound done unknown) in [place]. She has a history of irregular (unknown) (no (unknown) (unknown) caffeine: Yes (1 (units (unknown) date) cup coffee/day) unknown) (unknown) (no (unknown) (unknown) carbon monox (units (u nknown) date) detector in home: unknown) Yes (unknown) (no (unknown) (unknown) citalopram 10 mg (units (unknown) date) tablet 15 mg PO unknown) DAILY 04/13/22 [History Confirmed 08/11/22] (unknown) (no (unknown) (unknown) current (units (unkno wn) date) occupational unknown) exposures/hazards : Yes (will wear gloves when handling (unknown) (no (unknown) (unknown) daily servings (units (unknown) date) fruits/ve-4 unknown) (unknown) (no (unknown) (unknown) described, visit (units (unknown) date) schedule unknown) reviewed, ultrasounds policy reviewed, coverage 24 (unknown) (no (unknown) (unknown) desires gender (units (unknown) date) left off of the unknown) tests, leaving as a surprise. PN labs today. (unknown) (no (unknown) (unknown) discharge. (units (unk nown) date) Orders placed for unknown) 1 hour GDM screen and H+H. PTL precautions (unknown) (no (unknown) (unknown) discussed, (units (unk nown) date) tuberculosis unknown) exposure discussed, CMV discussed, Toxoplasmosis (unknown) (no (unknown) (unknown) disorders, (units (unk nown) date) Denies Cystic unknown) Fibrosis, Denies Mental Retardation/Autis m, Denies (unknown) (no (unknown) (unknown) do you feel safe (units (unknown) date) at home: Yes unknown) (unknown) (no (unknown) (unknown) drawn 06/09 (units (un known) date) unknown) (unknown) (no (unknown) (unknown) during the past (units (unknown) date) year weight has: unknown) remained stable (unknown) (no (unknown) (unknown) education level: (units (unknown) date) vocational (some unknown) college) (unknown) (no (unknown) (unknown) exposure, (units (unkn own) date) Medication use, unknown) Sauna/hot tub use, Dental care, Travel, Seatbelt use (unknown) (no (unknown) (unknown) fire (units (unkno wn) date) extinguisher in unknown) home: Yes (unknown) (no (unknown) (unknown) firearms in (units (un known) date) home: Yes unknown) firearms unloaded and locked: Yes (unknown) (no (unknown) (unknown) for MSAFP today. (units (unknown) date) Anatomy US unknown) scheduled. (unknown) (no (unknown) (unknown) h/o PP (units (unkno wn) date) depression with unknown) severe rage (unknown) (no (unknown) (unknown) have occurred. (units (unknown) date) If there are any unknown) questions, please contact the Medical Records (unknown) (no (unknown) (unknown) having (units (unkno wn) date) significant unknown) constipation and she will initiate MiraLax twice daily until (unknown) (no (unknown) (unknown) heartburn now, (units (unknown) date) started Pepcid. unknown) Denies cramping, spotting, LOF or abnormal (unknown) (no (unknown) (unknown) her stools (units (unk nown) date) soften. She is unknown) also experiencing significant stress urinary (unknown) (no (unknown) (unknown) hours a day and (units (unknown) date) participation of unknown) father in care and office visits (unknown) (no (unknown) (unknown) household (units (unkn own) date) members: spouse unknown) and children (unknown) (no (unknown) (unknown) housing: house (units (unknown) date) unknown) (unknown) (no (unknown) (unknown) hyperemesis (units (un known) date) unknown) (unknown) (no (unknown) (unknown) incontinence and (units (unknown) date) requests referral unknown) to pelvic floor physical therapy which was (unknown) (no (unknown) (unknown) initiated today (units (unknown) date) also. She is unknown) otherwise doing well and her baby is active but (unknown) (no (unknown) (unknown) instead initiate (units (unknown) date) Prilosec 40 mg unknown) extended release twice daily. She is also (unknown) (no (unknown) (unknown) is lessening, (units ( unknown) date) but still has unknown) emesis every am. Still needing Zofran. Also having (unknown) (no (unknown) (unknown) is requiring (units (u nknown) date) Zofran to her 3 unknown) times daily. Exacerbating the nausea is severe (unknown) (no (unknown) (unknown) jw (units (unkno wn) date) unknown) (unknown) (no (unknown) (unknown) lives (units (unkno wn) date) independently: unknown) Yes (unknown) (no (unknown) (unknown) marital status: (units (unknown) date) unknown) (unknown) (no (unknown) (unknown) may occur. (units (unk nown) date) Occasional unknown) wrong-word or 'sound-alike' substitutions may have (unknown) (no (unknown) (unknown) meds) (units (unkno wn) date) unknown) (unknown) (no (unknown) (unknown) menses and was (units (unknown) date) on OCPs but had unknown) run out when she conceived. (unknown) (no (unknown) (unknown) metoclopramide (units (unknown) date) Adverse Reaction unknown) (Intermediate, Verified 08/11/22 14:49) (unknown) (no (unknown) (unknown) no 152 12 absent (units (unknown) date) 0/long 4wk unknown) (unknown) (no (unknown) (unknown) no results are (units (unknown) date) available at this unknown) time. 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 Please (unknown) (no (unknown) (unknown) ok. She just (units (u nknown) date) started a new unknown) job. She is having nausea all day, but this is (unknown) (no (unknown) (unknown) omeprazole 40 mg (units (unknown) date) capsule,delayed unknown) release See Rx Instructions .Route .COMPLEX (unknown) (no (unknown) (unknown) ondansetron 4 mg (units (unknown) date) disintegrating unknown) tablet 4 mg PO Q6-8H nausea #40 tabs 06/24/22 (unknown) (no (unknown) (unknown) or baby's father (units (unknown) date) had a child with unknown) defects not listed above (unknown) (no (unknown) (unknown) pets and (units (unkno wn) date) animals: No unknown) (unknown) (no (unknown) (unknown) precautions, (units (u nknown) date) Listeriosis unknown) prevention and Rubella Immunization (unknown) (no (unknown) (unknown) prenat.vits,mariajose, (units (unknown) date) smn-[id number] 1 unknown) tab PO DAILY 04/13/22 [History Confirmed (unknown) (no (unknown) (unknown) read the note (units ( unknown) date) carefully and unknown) recognize, using context, where these substitutions (unknown) (no (unknown) (unknown) reflux for which (units (unknown) date) she is currently unknown) taking Zantac with minimal benefit. Will (unknown) (no (unknown) (unknown) reviewed and (units (u nknown) date) follow-up will be unknown) in 4 weeks or as needed. (unknown) (no (unknown) (unknown) rm [place], (units (unknown) date) [place] unknown) (unknown) (no (unknown) (unknown) seatbelt use: (units ( unknown) date) always unknown) (unknown) (no (unknown) (unknown) second hand (units (un known) date) exposure: No unknown) (unknown) (no (unknown) (unknown) severe range (units (un known) date) symptoms. unknown) was a surprise. She is adjusting, coping, moods (unknown) (no (unknown) (unknown) she denies (units (unk nown) date) contractions, unknown) bleeding, leakage of fluid per vagina, or change in (unknown) (no (unknown) (unknown) software. (units (unkn own) date) Although every unknown) effort is made to edit content, illustrator set errors (unknown) (no (unknown) (unknown) special richy (units ( unknown) date) needs: No unknown) (unknown) (no (unknown) (unknown) substance use (units ( unknown) date) type: marijuana unknown) (aware that not recommended during and (unknown) (no (unknown) (unknown) tenderness, (units (un known) date) bloating and unknown) other (mild constipation) (unknown) (no (unknown) (unknown) the baby) (units (unkn own) date) unknown) (unknown) (no (unknown) (unknown) travel history: (units (unknown) date) recent (Domestic unknown) only) (unknown) (no (unknown) (unknown) vaginal (units (unkno wn) date) discharge. Had a unknown) flu vaccine. She had a low risk cell free DNA result (unknown) (no (unknown) (unknown) vaginal (units (unkno wn) date) unknown) (unknown) (no (unknown) (unknown) water heater (units (u nknown) date) temp set < 120 unknown) deg: Yes (unknown) (no (unknown) (unknown) well-balanced (units ( unknown) date) diet: daily or unknown) most days (unknown) (no (unknown) (unknown) with nml exam (units ( unknown) date) today. She unknown) desires cell free DNA for aneuploidy screening, (unknown) (no (unknown) (unknown) working smoke (units ( unknown) date) detector in home: unknown) Yes (unknown) (no (unknown) (unknown) years other (units (un known) date) Janelle unknown) Result panel 2 (unknown) (no (unknown) (unknown) (no value) (units (unk nown) date) unknown) (unknown) (no (unknown) (unknown) #180 caps (units (unkn own) date) 07/19/22 [Rx unknown) Confirmed 08/11/22] (unknown) (no (unknown) (unknown) (+12 lb) 98/56 (units (unknown) date) unknown) (unknown) (no (unknown) (unknown) (+3 lb) 102/60 N (units (unknown) date) unknown) (unknown) (no (unknown) (unknown) (+7 lb) 118/62 N (units (unknown) date) unknown) (unknown) (no (unknown) (unknown) (+9 lb) 118/60 N (units (unknown) date) unknown) (unknown) (no (unknown) (unknown) (1) : (units (unknown) date) unknown) (unknown) (no (unknown) (unknown) (2) Stress (units (unk nown) date) incontinence unknown) during : (unknown) (no (unknown) (unknown) (gender left off (units (unknown) date) report per unknown) request). Her labs were normal. To lab (unknown) (no (unknown) (unknown) Genetic (units (unkn own) date) Screening/Teratol unknown) ogy Counseling - Includes patient, baby's father, or (unknown) (no (unknown) (unknown) -?-?-?-?-?-?-?-? (units (unknown) date) -?-?-?-? unknown) (unknown) (no (unknown) (unknown) 07/16/22 (units (unkno wn) date) unknown) (unknown) (no (unknown) (unknown) 08/03/14 40.2 7 (units (unknown) date) 6 lb 10 oz Female unknown) vaginal live - full te (unknown) (no (unknown) (unknown) 08/11/22 1523 (units ( unknown) date) unknown) (unknown) (no (unknown) (unknown) 08/11/22 (units (unkno wn) date) unknown) (unknown) (no (unknown) (unknown) 08/11/22] (units (unkn own) date) unknown) (unknown) (no (unknown) (unknown) 10/17/18 39.6 2 (units (unknown) date) 6 lb 11 oz Female unknown) vaginal live - full term (unknown) (no (unknown) (unknown) [id number] (units (unkno wn) date) unknown) (unknown) (no (unknown) (unknown) 04/28/22 (units (unkno wn) date) unknown) (unknown) (no (unknown) (unknown) 06/09/22 (units (unkno wn) date) unknown) (unknown) (no (unknown) (unknown) 12w 4d 168 lb (units ( unknown) date) unknown) (unknown) (no (unknown) (unknown) 14:49 (units (unkno wn) date) unknown) (unknown) (no (unknown) (unknown) 18w 4d 172 lb (units ( unknown) date) unknown) (unknown) (no (unknown) (unknown) 2 years other (units ( unknown) date) [place] unknown) (unknown) (no (unknown) (unknown) 23w 6d 174 lb (units ( unknown) date) unknown) (unknown) (no (unknown) (unknown) 27w 4d 177 lb (units ( unknown) date) unknown) (unknown) (no (unknown) (unknown) AMA age 41. (units (unk nown) date) desired cell free unknown) DNA without gender >>cfDNA normal low risk. MSAFP (unknown) (no (unknown) (unknown) Abnormal lab (units (u nknown) date) values 1st unknown) trimester: discussed (unknown) (no (unknown) (unknown) Add'l Plan (units (unk nown) date) Details unknown) (unknown) (no (unknown) (unknown) Age/Sex: 41 / F (units (unknown) date) Date of Service: unknown) (unknown) (no (unknown) (unknown) Allergies (units (unkn own) date) unknown) (unknown) (no (unknown) (unknown) [place], [place] (units ( unknown) date) [id number] unknown) (unknown) (no (unknown) (unknown) Anesthesia (units (unk nown) date) unknown) (unknown) (no (unknown) (unknown) Aneuploidy (units (unkn own) date) Screening unknown) Offered: Accepted (Wants CFDNA, doesn't want to know sex of (unknown) (no (unknown) (unknown) Anticipated (units (un known) date) course of unknown) care: discussed (unknown) (no (unknown) (unknown) Anxiety (units (unkno wn) date) unknown) (unknown) (no (unknown) (unknown) Assessment and (units (unknown) date) Plan unknown) (unknown) (no (unknown) (unknown) Attending Dr: (units ( unknown) date) Ray Fierro unknown) (unknown) (no (unknown) (unknown) BMI 27.7 (units (unkno wn) date) unknown) (unknown) (no (unknown) (unknown) BP 98/56 L (units (unk nown) date) unknown) (unknown) (no (unknown) (unknown) Isabela returns (units ( unknown) date) today for her GUERA unknown) visit now at 23+ 6 weeks gestational age. (unknown) (no (unknown) (unknown) Isabela returns (units ( unknown) date) today for her GUERA unknown) visit now at 27+ 4 weeks gestational age. (unknown) (no (unknown) (unknown) (units (unkno wn) date) Plan/Preferences unknown) (unknown) (no (unknown) (unknown) Planning (units (unknown) date) unknown) (unknown) (no (unknown) (unknown) Blood Pressure (units (unknown) date) Location Rt unknown) brachial (unknown) (no (unknown) (unknown) Blood (units (unkno wn) date) transfusions?: unknown) yes (Never had but would accept) (unknown) (no (unknown) (unknown) Breastfeed Preg (units (unknown) date) Comp Name unknown) (unknown) (no (unknown) (unknown) Current Estimate (units (unknown) date) 11/06/22 unknown) Ultrasound #1 27w 4d (unknown) (no (unknown) (unknown) Current (units (unkno wn) date) History unknown) (unknown) (no (unknown) (unknown) DNA (units (unkno wn) date) unknown) (unknown) (no (unknown) (unknown) : 1980 (units (unknown) date) Acct:[id number] unknown) (unknown) (no (unknown) (unknown) Date of positive (units (unknown) date) home unknown) test: 03/21/22 (unknown) (no (unknown) (unknown) Date (units (unkno wn) date) unknown) (unknown) (no (unknown) (unknown) Del. Date (units (unkn own) date) GA/Weeks Labor unknown) Lgth Wt Sex Route Outcome Anesthesia Place (unknown) (no (unknown) (unknown) Delivery Date: (units (unknown) date) 08/03/14 Last unknown) Updated by: Donna Cedillo RN (unknown) (no (unknown) (unknown) Delivery Date: (units (unknown) date) 10/17/18 Last unknown) Updated by: Donna Cedillo RN (unknown) (no (unknown) (unknown) Delv (units (unkno wn) date) unknown) (unknown) (no (unknown) (unknown) Denies Congenital (units (unknown) date) Heart Defect, unknown) Denies Down Syndrome, Denies Muscular Dystrophy, (unknown) (no (unknown) (unknown) Denies Maternal (units (unknown) date) Metabolic unknown) Disorder (EG,TYPE 1 Diabetes, PKU) and Denies Patient (unknown) (no (unknown) (unknown) Denies Neural (units ( unknown) date) Tube Defect unknown) (Meningomyelocele , Spina Bifida, or Anencephaly), (unknown) (no (unknown) (unknown) Denies Sickle (units ( unknown) date) Cell Disease or unknown) Trait (), Denies Hemophilia or other blood (unknown) (no (unknown) (unknown) Denies Rj-Sachs (units (unknown) date) (Ashkenazi unknown) Gnosticist, Cajun, English Belizean), Denies Adelaida (unknown) (no (unknown) (unknown) Denies other (units (u nknown) date) unknown) (unknown) (no (unknown) (unknown) Denies over the (units (unknown) date) counter unknown) medications, Denies alcohol, Denies illicit drugs and (unknown) (no (unknown) (unknown) Depression (units (unk nown) date) unknown) (unknown) (no (unknown) (unknown) Depression: (units (un known) date) discussed unknown) (unknown) (no (unknown) (unknown) Dept at (units (unkno wn) date) . unknown) (unknown) (no (unknown) (unknown) Diet and (units (unkno wn) date) Exercise unknown) (unknown) (no (unknown) (unknown) Disease (units (unkno wn) date) (Ashkenazi unknown) Gnosticist), Denies Familial Dysautonomia (Ashkenazi Gnosticist), (unknown) (no (unknown) (unknown) Documented By: (units (unknown) date) Ray Fierro unknown) 08/11/22 1447 (unknown) (no (unknown) (unknown) MONI Calculator (units (unknown) date) unknown) (unknown) (no (unknown) (unknown) EGA Weight BP (units ( unknown) date) UGlucose unknown) (unknown) (no (unknown) (unknown) Endometriosis (units ( unknown) date) () unknown) (unknown) (no (unknown) (unknown) Estimated (units (unkn own) date) Delivery Date unknown) Method Current (unknown) (no (unknown) (unknown) Exercise and (units (u nknown) date) activity, unknown) work/environmenta l/hazards, Sexual activity, X-ray (unknown) (no (unknown) (unknown) Expected (units (unkno wn) date) Delivery unknown) Route/Plan (unknown) (no (unknown) (unknown) Family History (units (unknown) date) (Updated 04/13/22 unknown) @ 13:17 by Donna Cedillo RN) (unknown) (no (unknown) (unknown) Family/Other (units (u nknown) date) Breast cancer unknown) (unknown) (no (unknown) (unknown) Family/Other (units (u nknown) date) Liver cancer unknown) (unknown) (no (unknown) (unknown) Family/Other (units (u nknown) date) Lung cancer unknown) (unknown) (no (unknown) (unknown) Family/Other (units (u nknown) date) Stomach cancer unknown) (unknown) (no (unknown) (unknown) Father Diabetes (units (unknown) date) mellitus unknown) (unknown) (no (unknown) (unknown) Father of Baby: (units (unknown) date) same unknown) (unknown) (no (unknown) (unknown) [facility]) (unknown) (no (unknown) (unknown) First Trimester (units (unknown) date) Education unknown) Checklist (unknown) (no (unknown) (unknown) (units (unkno wn) date) unknown) (unknown) (no (unknown) (unknown) Genetic (units (unkno wn) date) Screening + unknown) Counseling (unknown) (no (unknown) (unknown) Genetic (units (unkno wn) date) Screening unknown) (unknown) (no (unknown) (unknown) Grandfather (units (un known) date) Prostate cancer unknown) (unknown) (no (unknown) (unknown) 3 (units (unkn own) date) Multiple births 0 unknown) (unknown) (no (unknown) (unknown) H/O breast (units (unk nown) date) implant unknown) () (unknown) (no (unknown) (unknown) H/O ovarian (units (un known) date) cystectomy unknown) () (unknown) (no (unknown) (unknown) H/O unilateral (units (unknown) date) oophorectomy unknown) (unknown) (no (unknown) (unknown) HIV risk (units (unkno wn) date) evaluation: low unknown) risk (unknown) (no (unknown) (unknown) Health Center (units ( unknown) date) Education unknown) (unknown) (no (unknown) (unknown) Health center (units ( unknown) date) information: unknown) nature of practice discussed, personnel (unknown) (no (unknown) (unknown) Height 5 ft 7 in (units (unknown) date) unknown) (unknown) (no (unknown) (unknown) Hepatitis C risk (units (unknown) date) evaluation: low unknown) risk (unknown) (no (unknown) (unknown) History of (units (unk nown) date) Anxiety and unknown) depression and depression with (unknown) (no (unknown) (unknown) History of (units (unk nown) date) Hepatitis B: No unknown) (unknown) (no (unknown) (unknown) History of (units (unk nown) date) Hepatitis C: No unknown) (unknown) (no (unknown) (unknown) Hospital: (units (u nknown) date) unknown) (unknown) (no (unknown) (unknown) [facility] (units (u nknown) date) Chorea, Denies unknown) Other inherited genetic or chromosomal disorder, (unknown) (no (unknown) (unknown) Tez (units (unknown) date) unknown) (unknown) (no (unknown) (unknown) Hx # (units (u nknown) date) Pregnancies 0 unknown) Elective abortions 0 (unknown) (no (unknown) (unknown) Hx # Term (units (unkn own) date) Pregnancies 2 unknown) Ectopic pregnancies 0 (unknown) (no (unknown) (unknown) Hyperemesis (units (un known) date) gravidarum unknown) (unknown) (no (unknown) (unknown) Hypertension (units (u nknown) date) unknown) (unknown) (no (unknown) (unknown) will be (units (unknown) date) adopted?: no unknown) (unknown) (no (unknown) (unknown) Infection (units (unkn own) date) History unknown) (unknown) (no (unknown) (unknown) Infectious (units (unk nown) date) Disease Education unknown) (unknown) (no (unknown) (unknown) Infectious (units (unk nown) date) disease exposure: unknown) chicken pox immunity discussed, hepatitis risk (unknown) (no (unknown) (unknown) Initial Weight: (units (unknown) date) 165 lb unknown) (unknown) (no (unknown) (unknown) Initials (units (unkno wn) date) unknown) (unknown) (no (unknown) (unknown) Intake Clinical (units (unknown) date) Staff unknown) (unknown) (no (unknown) (unknown) Intake Note: (units (u nknown) date) unknown) (unknown) (no (unknown) (unknown) Intake performed (units (unknown) date) by: Mike Yip unknown) (unknown) (no (unknown) (unknown) Intake (units (unkno wn) date) unknown) (unknown) (no (unknown) (unknown) Irregular (units (unkn own) date) menstrual cycle unknown) (unknown) (no (unknown) (unknown) [place], [place] 3 (units (u nknown) date) unknown) (unknown) (no (unknown) (unknown) Live with (units (unkn own) date) someone with TB unknown) or exposed to TB: No (unknown) (no (unknown) (unknown) Loc: [facility] (units (unkno wn) date) unknown) (unknown) (no (unknown) (unknown) Marital status: (units (unknown) date) unknown) (unknown) (no (unknown) (unknown) Medical History (units (unknown) date) (Updated 08/11/22 unknown) @ 15:23 by Ray Fierro MD) (unknown) (no (unknown) (unknown) Medications (units (un known) date) unknown) (unknown) (no (unknown) (unknown) Mother Diabetes (units (unknown) date) mellitus unknown) (unknown) (no (unknown) (unknown) N No no (units (unkno wn) date) unknown) (unknown) (no (unknown) (unknown) N Yes no 140 24 (units (unknown) date) N/A absent 4 wks unknown) (unknown) (no (unknown) (unknown) Notes (units (unkno wn) date) unknown) (unknown) (no (unknown) (unknown) Number of Living (units (unknown) date) Children 2 unknown) (unknown) (no (unknown) (unknown) Number of (units (unkn own) date) fetuses:: Single unknown) (unknown) (no (unknown) (unknown) Nutrition and (units ( unknown) date) weight gain unknown) counseling: special diet: discussed (unknown) (no (unknown) (unknown) OB Office Visit (units (unknown) date) unknown) (unknown) (no (unknown) (unknown) OB Visit Log (units (u nknown) date) unknown) (unknown) (no (unknown) (unknown) On control (units (unknown) date) at conception?: unknown) No (unknown) (no (unknown) (unknown) Orders (units (unkno wn) date) unknown) (unknown) (no (unknown) (unknown) Orders: (units (unkno wn) date) unknown) (unknown) (no (unknown) (unknown) PFSH (units (unkno wn) date) unknown) (unknown) (no (unknown) (unknown) Painful (units (unkno wn) date) menstrual periods unknown) (unknown) (no (unknown) (unknown) Para 2 (units (unkno wn) date) Spontaneous unknown) abortions 0 (unknown) (no (unknown) (unknown) Partner history (units (unknown) date) of STD: chlamydia unknown) (2004, treated and cured) (unknown) (no (unknown) (unknown) Partner history (units (unknown) date) of genital unknown) herpes: No (unknown) (no (unknown) (unknown) Partner: Tez (units (unknown) date) Saad unknown) (unknown) (no (unknown) (unknown) Past Pregnancies (units (unknown) date) unknown) (unknown) (no (unknown) (unknown) Patient's age 37 (units (unknown) date) years or older as unknown) of estimated date of delivery: Yes (unknown) (no (unknown) (unknown) Patient: (units (unkno wn) date) Magda Nash unknown) MR#: [id number] (unknown) (no (unknown) (unknown) Floral Clerk: (units ( unknown) date) MICHAEL Beal unknown) (unknown) (no (unknown) (unknown) Pelvic neoplasm (units (unknown) date) unknown) (unknown) (no (unknown) (unknown) Personal history (units (unknown) date) of STD: chlamydia unknown) (2004, treated and cured) (unknown) (no (unknown) (unknown) Personal history (units (unknown) date) of genital unknown) herpes: No (unknown) (no (unknown) (unknown) Position Sitting (units (unknown) date) unknown) (unknown) (no (unknown) (unknown) (units (unk nown) date) depression unknown) (unknown) (no (unknown) (unknown) Precipitous (units (un known) date) delivery 2nd unknown) child (-2 hours active labor) (unknown) (no (unknown) (unknown) (units (unkn own) date) History unknown) (unknown) (no (unknown) (unknown) type:: (units (unknown) date) Other Normal unknown) (unknown) (no (unknown) (unknown) (units (unkno wn) date) Education unknown) (unknown) (no (unknown) (unknown) Initial (units (unknown) date) Assessment unknown) (unknown) (no (unknown) (unknown) (units (unkno wn) date) Specific unknown) Issues/Plans (unknown) (no (unknown) (unknown) (units (unkno wn) date) Testing: unknown) discussed (unknown) (no (unknown) (unknown) Visit (units (unknown) date) unknown) (unknown) (no (unknown) (unknown) (units (unkno wn) date) education packet: unknown) Child education/plan, symptoms, (unknown) (no (unknown) (unknown) Primary Care (units (u nknown) date) Provider: MICHAEL Raymond unknown) Lian (unknown) (no (unknown) (unknown) Primary Ob (units (unk nown) date) Provider: unknown) Tonya Royal (unknown) (no (unknown) (unknown) Prior (units (unkno wn) date) GBS-Infected unknown) child: No (unknown) (no (unknown) (unknown) Providers (units (unkn own) date) unknown) (unknown) (no (unknown) (unknown) Pt here for OB (units (unknown) date) Check unknown) (unknown) (no (unknown) (unknown) 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 MONI is set (unknown) (no (unknown) (unknown) Magda presents (units (unknown) date) for a GUERA visit @ unknown) 18wk4d. Doing overall well. Her nausea (unknown) (no (unknown) (unknown) Recent travel (units ( unknown) date) outside of unknown) country?: No (unknown) (no (unknown) (unknown) Recurrent (units (unkn own) date) loss or unknown) a stillbirth: No (unknown) (no (unknown) (unknown) Reports Other (units ( unknown) date) (nephew w/ health unknown) problems r/t exreme prematurity.); (unknown) (no (unknown) (unknown) Safety (units (unkno wn) date) unknown) (unknown) (no (unknown) (unknown) She is doing (units (u nknown) date) much much better unknown) on Prilosec b.i.d. than she was on Zantac. She (unknown) (no (unknown) (unknown) She relates that (units (unknown) date) she had her unknown) growth ultrasound performed yesterday at [facility] but (unknown) (no (unknown) (unknown) Signed By: (units (unk nown) date) <Electronically unknown) signed by Ray Fierro MD> (unknown) (no (unknown) (unknown) Signed (units (unkno wn) date) unknown) (unknown) (no (unknown) (unknown) Sister Breast (units ( unknown) date) cancer unknown) (unknown) (no (unknown) (unknown) Sister had (units (unk nown) date) breast cancer age unknown) 48, pt has not yet started screening mammo (unknown) (no (unknown) (unknown) Skin cancer (units (un known) date) unknown) (unknown) (no (unknown) (unknown) Smoking Status: (units (unknown) date) Never smoker unknown) (unknown) (no (unknown) (unknown) Social History (units (unknown) date) unknown) (unknown) (no (unknown) (unknown) Status: Acute (units ( unknown) date) unknown) (unknown) (no (unknown) (unknown) Support (units (unkno wn) date) Person(s):: unknown) Tez (unknown) (no (unknown) (unknown) Surgical History (units (unknown) date) (Updated 05/03/22 unknown) @ 07:12 by Tonya Royal MD) (unknown) (no (unknown) (unknown) Surrogate (units (unkn own) date) ?: no unknown) (unknown) (no (unknown) (unknown) Symptoms since (units (unknown) date) LMP: Reports unknown) amenorrhea, nausea, vomiting, fatigue, breast (unknown) (no (unknown) (unknown) TR Yes no 136 18 (units (unknown) date) absent 4wk unknown) (unknown) (no (unknown) (unknown) Tdap status: (units (u nknown) date) immunized unknown) (unknown) (no (unknown) (unknown) Teratogen (units (unkn own) date) Exposures since unknown) LMP/Conception: Denies prescription medications, (unknown) (no (unknown) (unknown) Testing (units (unkno wn) date) Education unknown) (unknown) (no (unknown) (unknown) Testing (units (unkno wn) date) education unknown) completed: group B strep, Spina bifida testing and Cell Free (unknown) (no (unknown) (unknown) This note may (units ( unknown) date) have been all or unknown) partially generated using voice recognition (unknown) (no (unknown) (unknown) Tobacco + (units (unkn own) date) Substance Use unknown) (unknown) (no (unknown) (unknown) Tobacco Status (units (unknown) date) unknown) (unknown) (no (unknown) (unknown) Trimester:: 2nd (units (unknown) date) Trimester unknown) (14-<28wks) (unknown) (no (unknown) (unknown) Type(s) of (units (unk nown) date) exercise: none unknown) (unknown) (no (unknown) (unknown) UProtein Movement (units (unknown) date) PreLabor FHR Fndl unknown) Ht Pres Edema Cerv Exam US/Comment Next Appt (unknown) (no (unknown) (unknown) Urine Culture (units ( unknown) date) Today Z34.82 - unknown) Encounter for supervision of other normal (unknown) (no (unknown) (unknown) Varicella/chicke (units (unknown) date) n pox status: unknown) previous disease (unknown) (no (unknown) (unknown) Visit Date: (units (un known) date) 07/16/22 Last unknown) Updated by: Ray Fierro MD (unknown) (no (unknown) (unknown) Visit Date: (units (un known) date) 08/11/22 Last unknown) Updated by: Ray Fierro MD (unknown) (no (unknown) (unknown) Visit Date: (units (un known) date) 04/28/22 Last unknown) Updated by: Tonya Royal MD (unknown) (no (unknown) (unknown) Visit Date: (units (un known) date) 06/09/22 Last unknown) Updated by: Tonya Royal MD (unknown) (no (unknown) (unknown) Visit Reasons: (units (unknown) date) OB ck unknown) (unknown) (no (unknown) (unknown) Vitals (units (unkno wn) date) unknown) (unknown) (no (unknown) (unknown) Vitamins and (units (u nknown) date) iron, Diet and unknown) weight gain, Fish and mercury intake, Caffeine use, (unknown) (no (unknown) (unknown) WG (units (unkno wn) date) unknown) (unknown) (no (unknown) (unknown) Weeks (units (unkno wn) date) gestation:: 27 unknown) (unknown) (no (unknown) (unknown) Weeks of (units (unkno wn) date) gestation: 27 unknown) weeks Qualified Code(s): Z3A.27 - 27 weeks (unknown) (no (unknown) (unknown) Weight 177 lb (units ( unknown) date) unknown) (unknown) (no (unknown) (unknown) [facility] (units (unknown) date) Hospital due to unknown) proximity to her home and friends. Patient (unknown) (no (unknown) (unknown) Yes no 138 27 (units ( unknown) date) Uncertain absent unknown) 3 wks (unknown) (no (unknown) (unknown) Zika virus (units (unk nown) date) exposure: No unknown) (unknown) (no (unknown) (unknown) [Rx Confirmed (units ( unknown) date) 08/11/22] unknown) (unknown) (no (unknown) (unknown) active but she (units ( unknown) date) denies cramping, unknown) bleeding, leakage of fluid per vagina, or change (unknown) (no (unknown) (unknown) alcohol intake: (units (unknown) date) former (rarely unknown) when not ) (unknown) (no (unknown) (unknown) amh (units (unkno wn) date) unknown) (unknown) (no (unknown) (unknown) and Influenza (units ( unknown) date) vaccine (Annual unknown) flu, Covid x2) (unknown) (no (unknown) (unknown) anyone in either (units (unknown) date) family with: unknown) (unknown) (no (unknown) (unknown) assured that we (units (unknown) date) would be fully unknown) supportive of such a decision and would be happy (unknown) (no (unknown) (unknown) ay occur. (units (unkn own) date) Occasional unknown) wrong-word or 'sound-alike' substitutions may have (unknown) (no (unknown) (unknown) better with (units (un known) date) Zofran now. No unknown) bleeding or cramping. Due for screening Pap, done (unknown) (no (unknown) (unknown) ) (units (unknown) date) unknown) (unknown) (no (unknown) (unknown) by a 7 week (units (un known) date) ultrasound done unknown) in [place]. She has a history of irregular (unknown) (no (unknown) (unknown) caffeine: Yes (1 (units (unknown) date) cup coffee/day) unknown) (unknown) (no (unknown) (unknown) carbon monox (units (u nknown) date) detector in home: unknown) Yes (unknown) (no (unknown) (unknown) citalopram 10 mg (units (unknown) date) tablet 15 mg PO unknown) DAILY 04/13/22 [History Confirmed 08/11/22] (unknown) (no (unknown) (unknown) continues to (units (u nknown) date) have nausea but unknown) between the [facility] and the [facility], she is doing (unknown) (no (unknown) (unknown) current (units (unkno wn) date) occupational unknown) exposures/hazards : Yes (will wear gloves when handling (unknown) (no (unknown) (unknown) daily servings (units (unknown) date) fruits/ve-4 unknown) (unknown) (no (unknown) (unknown) described, visit (units (unknown) date) schedule unknown) reviewed, ultrasounds policy reviewed, coverage 24 (unknown) (no (unknown) (unknown) desires gender (units (unknown) date) left off of the unknown) tests, leaving as a surprise. PN labs today. (unknown) (no (unknown) (unknown) discharge. (units (unk nown) date) Orders placed for unknown) 1 hour GDM screen and H+H. PTL precautions (unknown) (no (unknown) (unknown) discussed, (units (unk nown) date) tuberculosis unknown) exposure discussed, CMV discussed, Toxoplasmosis (unknown) (no (unknown) (unknown) disorders, (units (unk nown) date) Denies Cystic unknown) Fibrosis, Denies Mental Retardation/Autis m, Denies (unknown) (no (unknown) (unknown) do you feel safe (units (unknown) date) at home: Yes unknown) (unknown) (no (unknown) (unknown) drawn 06/09 (units (un known) date) unknown) (unknown) (no (unknown) (unknown) during the past (units (unknown) date) year weight has: unknown) remained stable (unknown) (no (unknown) (unknown) education level: (units (unknown) date) vocational (some unknown) college) (unknown) (no (unknown) (unknown) exposure, (units (unkn own) date) Medication use, unknown) Sauna/hot tub use, Dental care, Travel, Seatbelt use (unknown) (no (unknown) (unknown) fire (units (unkno wn) date) extinguisher in unknown) home: Yes (unknown) (no (unknown) (unknown) firearms in (units (un known) date) home: Yes unknown) firearms unloaded and locked: Yes (unknown) (no (unknown) (unknown) for MSAFP today. (units (unknown) date) Anatomy US unknown) scheduled. (unknown) (no (unknown) (unknown) gestation of (units (u nknown) date) unknown) (unknown) (no (unknown) (unknown) h/o PP (units (unkno wn) date) depression with unknown) severe rage (unknown) (no (unknown) (unknown) have occurred. (units (unknown) date) If there are any unknown) questions, please contact the Medical Records (unknown) (no (unknown) (unknown) having (units (unkno wn) date) significant unknown) constipation and she will initiate MiraLax twice daily until (unknown) (no (unknown) (unknown) heartburn now, (units (unknown) date) started Pepcid. unknown) Denies cramping, spotting, LOF or abnormal (unknown) (no (unknown) (unknown) her stools (units (unk nown) date) soften. She is unknown) also experiencing significant stress urinary (unknown) (no (unknown) (unknown) hours a day and (units (unknown) date) participation of unknown) father in care and office visits (unknown) (no (unknown) (unknown) household (units (unkn own) date) members: spouse unknown) and children (unknown) (no (unknown) (unknown) housing: house (units (unknown) date) unknown) (unknown) (no (unknown) (unknown) hyperemesis (units (un known) date) unknown) (unknown) (no (unknown) (unknown) in discharge. 1 (units (unknown) date) hour GDM screen unknown) and H+H to be performed today. PTL precautions (unknown) (no (unknown) (unknown) incontinence and (units (unknown) date) requests referral unknown) to pelvic floor physical therapy which was (unknown) (no (unknown) (unknown) initiated today (units (unknown) date) also. She is unknown) otherwise doing well and her baby is active but (unknown) (no (unknown) (unknown) instead initiate (units (unknown) date) Prilosec 40 mg unknown) extended release twice daily. She is also (unknown) (no (unknown) (unknown) is lessening, (units ( unknown) date) but still has unknown) emesis every am. Still needing Zofran. Also having (unknown) (no (unknown) (unknown) is requiring (units (u nknown) date) Zofran to her 3 unknown) times daily. Exacerbating the nausea is severe (unknown) (no (unknown) (unknown) jw (units (unkno wn) date) unknown) (unknown) (no (unknown) (unknown) lives (units (unkno wn) date) independently: unknown) Yes (unknown) (no (unknown) (unknown) marital status: (units (unknown) date) unknown) (unknown) (no (unknown) (unknown) meds) (units (unkno wn) date) unknown) (unknown) (no (unknown) (unknown) menses and was (units (unknown) date) on OCPs but had unknown) run out when she conceived. (unknown) (no (unknown) (unknown) metoclopramide (units (unknown) date) Adverse Reaction unknown) (Intermediate, Verified 08/11/22 14:49) (unknown) (no (unknown) (unknown) much better. (units (u nknown) date) Patient has been unknown) approved for PT consult in contact information (unknown) (no (unknown) (unknown) no 152 12 absent (units (unknown) date) 0/long 4wk unknown) (unknown) (no (unknown) (unknown) no results are (units (unknown) date) available at this unknown) time. 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 Please (unknown) (no (unknown) (unknown) ok. She just (units (u nknown) date) started a new unknown) job. She is having nausea all day, but this is (unknown) (no (unknown) (unknown) omeprazole 40 mg (units (unknown) date) capsule,delayed unknown) release See Rx Instructions .Route .COMPLEX (unknown) (no (unknown) (unknown) ondansetron 4 mg (units (unknown) date) disintegrating unknown) tablet 4 mg PO Q6-8H nausea #40 tabs 06/24/22 (unknown) (no (unknown) (unknown) or baby's father (units (unknown) date) had a child with unknown) defects not listed above (unknown) (no (unknown) (unknown) pets and (units (unkno wn) date) animals: No unknown) (unknown) (no (unknown) (unknown) precautions, (units (u nknown) date) Listeriosis unknown) prevention and Rubella Immunization (unknown) (no (unknown) (unknown) , (units (unk nown) date) second trimester, unknown) Z3A.27 - 27 weeks gestation of (unknown) (no (unknown) (unknown) prenat.vits,mariajose, (units (unknown) date) [id number] 1 unknown) tab PO DAILY 04/13/22 [History Confirmed (unknown) (no (unknown) (unknown) provided for Rue (units (unknown) date) + Primavera in unknown) [place]. Patient is considering transfer to (unknown) (no (unknown) (unknown) read the note (units ( unknown) date) carefully and unknown) recognize, using context, where these substitutions (unknown) (no (unknown) (unknown) reflux for which (units (unknown) date) she is currently unknown) taking Zantac with minimal benefit. Will (unknown) (no (unknown) (unknown) reviewed and (units (u nknown) date) follow-up will be unknown) in 3 weeks or as needed (unknown) (no (unknown) (unknown) reviewed and (units (u nknown) date) follow-up will be unknown) in 4 weeks or as needed. (unknown) (no (unknown) (unknown) rm [place], (units (unknown) date) [place] unknown) (unknown) (no (unknown) (unknown) seatbelt use: (units ( unknown) date) always unknown) (unknown) (no (unknown) (unknown) second hand (units (un known) date) exposure: No unknown) (unknown) (no (unknown) (unknown) severe range (units (un known) date) symptoms. unknown) was a surprise. She is adjusting, coping, moods (unknown) (no (unknown) (unknown) she denies (units (unk nown) date) contractions, unknown) bleeding, leakage of fluid per vagina, or change in (unknown) (no (unknown) (unknown) software. (units (unkn own) date) Although every unknown) effort is made to edit content, illustrator set errors m (unknown) (no (unknown) (unknown) special richy (units ( unknown) date) needs: No unknown) (unknown) (no (unknown) (unknown) substance use (units ( unknown) date) type: marijuana unknown) (aware that not recommended during and (unknown) (no (unknown) (unknown) tenderness, (units (un known) date) bloating and unknown) other (mild constipation) (unknown) (no (unknown) (unknown) the baby) (units (unkn own) date) unknown) (unknown) (no (unknown) (unknown) to copy records (units (unknown) date) at any point to unknown) facilitate her transfer. Her baby remains (unknown) (no (unknown) (unknown) travel history: (units (unknown) date) recent (Domestic unknown) only) (unknown) (no (unknown) (unknown) vaginal (units (unkno wn) date) discharge. Had a unknown) flu vaccine. She had a low risk cell free DNA result (unknown) (no (unknown) (unknown) vaginal (units (unkno wn) date) unknown) (unknown) (no (unknown) (unknown) water heater (units (u nknown) date) temp set < 120 unknown) deg: Yes (unknown) (no (unknown) (unknown) well-balanced (units ( unknown) date) diet: daily or unknown) most days (unknown) (no (unknown) (unknown) with nml exam (units ( unknown) date) today. She unknown) desires cell free DNA for aneuploidy screening, (unknown) (no (unknown) (unknown) working smoke (units ( unknown) date) detector in home: unknown) Yes (unknown) (no (unknown) (unknown) years other (units (un known) date) Janelle unknown) Result panel 3 (unknown) (no date) (unknown) (unknown) 10.7 g/dl (unkn own) (unknown) (no date) (unknown) (unknown) 31.0 % (unkn own) Result panel 4 (unknown) (no date) (unknown) (unknown) 105 mg/dl (unkn own) (unknown) (no date) (unknown) (unknown) 105 mg/dl (unkn own) Result panel 5 (unknown) (no date) (unknown) (unknown) No growth. (units (un known) unknown) Result panel 6 (unknown) (no date) (unknown) (unknown) (no value) (units (un known) unknown) (unknown) (no date) (unknown) (unknown) Mixed gram + (units ( unknown) radha. Deemed unknown) unsuitable for further studies. Social History date description facility 2022-08-11 00:00 [facility] date measurement value units 2022-08-11 00:00 BMI 27.7 kg/m2 2022-08-11 00:00 BP_diastolic 56 mmHg 2022-08-11 00:00 BP_systolic 98 mmHg 2022-08-11 00:00 height_metric 170.18 cm 2022-08-11 00:00 height_standard 67 in 2022-08-11 00:00 weight_metric 80.28 kg 2022-08-11 00:00 weight_standard 176.99 lb
--- NOTE | 2022-10-27 17:50 | DELIVERY NOTE ---
Delivery Note - Labor Labor: positive: Spontaneous - Delivery Method Delivery Method: positive: Spontaneous vaginal delivery - Presentation Presentation: positive: SULAIMAN - left occiput anterior - Nuchal Cord Nuchal Cord: positive: Present, Reduced - Anesthetic Anesthetic Type: - Amniotic Fluid Description Amniotic Fluid Description: positive: Clear - Laceration Laceration: positive: None - Delivery Outcome Delivery Outcome: positive: Livebirth - [place] : positive: Placed in direct skin contact with mother, [place] used sex: positive: Female - Cord Cord: positive: 3 vessels - Placenta Placenta: positive: Intact - Estimated Blood Loss Estimated Blood Loss (in cc): 50 - Post Delivery Events Post Delivery Events: positive: No post delivery events - Delivery Comments (Free Text/Narrative) Delivery Comments (Free Text/Narrative): Preoperative Diagnoses 38 weeks gestation Term labor Depression Postoperative Diagnoses Same Delivery of live aguilar Delivery Summary: Patient was placed in the dorsal lithotomy position. Upon maternal pushing the head was delivered atraumatically, and a nuchal cord was noticed and reduced prior to delivery of of the the anterior shoulder, posterior shoulder, then the remainder of the 's body. A female infant was delivered with APGARS of 9 at 1 minute and 9 at 5 minutes. The infant was placed on its mother's chest . After the cord finished pulsating, the umbilical cord was clamped times two and cut. The placenta delivered intact with three vessel cord. Placenta was not sent to p athology. Thirty units of Pitocin were added to the IV fluid and allowed to run freely. Uterine massage was performed until uterus was deemed firm. Upon inspection of the perineum, vagina and cervix were intact. Uterus again massaged and found to be firm. Needle and sponge counts were correct. Patient was stable and allowed to recover in L&D room. was stable and remained in room with mother. weight is pending at this time.
[2022-10-27] MEDS ORDERED: SODIUM CHLORIDE FLUSH 0.9% 10 ML SYRINGE IVP SCH ×2 (18:00→19:00)
[2022-10-27] MEDS ORDERED: LACTATED RINGERS 1,000 ML IV SCH ×2 (18:00)
[2022-10-27 18:16] LABS: BASOPHILS # (AUTO) 0.1 10^3/uL (0.0-0.1); BASOPHILS % (AUTO) 0.5 %; EOSINOPHILS # (AUTO) 0.1 10^3/uL (0.0-0.7); EOSINOPHILS % (AUTO) 0.8 %; HGB - HEMOGLOBIN 11.4 g/dL (12.0-16.0); LYMPHOCYTES # (AUTO) 1.9 10^3/uL (1.5-3.5); LYMPHOCYTES % (AUTO) 15.3 %; MEAN CORPUSCULAR HGB CONC 31.7 g/dL (32.0-36.0); MONOCYTES # (AUTO) 0.8 10^3/uL (0.0-1.0); MONOCYTES % (AUTO) 6.7 %; NEUTROPHILS # (AUTO) 9.1 10^3/uL (1.5-6.6); NEUTROPHILS % (AUTO) 75.2 %; PLT - PLATELET COUNT 379 10^3/uL (130-450); RED BLOOD COUNT 4.39 10^6/uL (4.20-5.40); RED CELL DISTRIBUTION WIDTH 14.8 % (12.0-15.0); WHITE BLOOD COUNT 12.2 x10^3/uL (4.8-10.8)
[2022-10-27] MEDS: ACETAMINOPHEN 500 MG TABLET PO SCH (19:30)
[2022-10-27] MEDS: IBUPROFEN 600 MG TABLET PO SCH (19:30)
[2022-10-27] MEDS: DOCUSATE SODIUM 100 MG CAPSULE PO PRN (19:31)
[2022-10-28] MEDS: IBUPROFEN 600 MG TABLET PO SCH ×3 (01:11→14:37)
[2022-10-28] MEDS: ACETAMINOPHEN 500 MG TABLET PO SCH ×3 (03:34→12:57)
[2022-10-28] MEDS: DOCUSATE SODIUM 100 MG CAPSULE PO PRN (08:13)
--- NOTE | 2022-10-28 08:54 | Discharge Plan ---
Discharge Plan Problem Reviewed?: Yes Disposition: Home, Self Care Diet: Regular Activity Restrictions: Additional Comments Shower Restrictions: No Instruction Topics: Vaginal After No Smoking: If you smoke, Please STOP! Call for help. Follow-up with: Ralph Garcia MD [Provider Admit Priv/Credential] -
--- NOTE | 2022-10-28 08:58 | DISCHARGE SUMMARY ---
Discharge Summary Admit Date: 10/27/22 Discharge Date: 10/28/22 Discharging Provider: Ralph Garcia MD Code Status: Attempt Resuscitation Condition at Discharge: Good Discharge Disposition: 01 Home, Self Care - DIAGNOSES Admission Diagnoses: 38 weeks gestation Term labor Discharge Diagnoses with Status of Each Condition: 38 weeks gestation: Delivered Term labor: delivered Delivery of live aguilar - HPI History of Present Illness: Subjective Patient reports she is doing well. Lochia appropriate. Denies heavy bleeding. Ambulating. Pelvic and abdominal pain well-controlled. Tolerating oral intake. Diet: Regular. Voiding without difficulty. Passing flatus. Denies BM. Patient is bonding with baby in room Breast feeding going well. Denies feeling lightheaded, dizzy or excessively fatigued. Control: OCPs Objective General: Alert, oriented, no apparent distress. Cardiovascular: Regular rate. Regular rhythm. Lungs: No increased work of breathing. Abdomen: Uterus firm. Below umbilicus. No guarding or rebound. Extremities: No pain on palpation. No cords palpated. Distal pulses intact. - HOSPITAL COURSE Hospital Course: Patient the hospital at 38 weeks gestation with ruptured membranes and patrick regularly. She was checked, to be complete, and had a precipitous delivery. course was unremarkable and desired to go home on day 1. - ALLERGIES Allergies/Adverse Reactions: Allergies Allergy/AdvReac Type Severity Reaction Status Date / Time No Known Drug Allergies Allergy Verified 03/25/22 07:10 - LABS Result Diagrams: 10/27/22 17:15 - FOLLOW UP Follow Up: With Ralph Garcia at [facility] - TIME SPENT Time Spent in Discharge (Minutes): 20
[2022-10-28] MEDS ORDERED: CITALOPRAM 10 MG TABLET PO SCH (09:00)
[2022-10-28 09:23] VITALS: BP 115/71
--- NOTE | 2022-10-28 20:00 | Labor Flowsheet ---
Labor Flowsheet Datetime Report Generated by CPN: 10/28/2022 20:00 Datetime: 10/28/2022 13:40 Pulse: 60 SpO2 (%): 100 Datetime: 10/28/2022 13:39 VITAL SIGNS NBP Sys/[place]/Mean (mmHg): 115 : 71 : 81 Datetime: 10/27/2022 18:46 Temperature (C): 36.7 Datetime: 10/27/2022 18:16 VAGINAL EXAM Membranes Ruptured Date/Time: 10/27/2022 16:45 Membranes Rupture Method: Spontaneous Amniotic Fluid Color: Clear MEDICATIONS Cervical Ripening Agents Other: none Datetime: 10/27/2022 17:55 Stage of : Recovery Respirations: 20 PAIN Pain Scale: 2 Pain Presence: Intermittent Pain Type: Cramping Pain Location: Abdomen Pain Goal: 4 Pain Relief Measures: Comfort Measures Pain Assessment Comments:
== END 2022-10-28 19:00 | disposition home or self-care (01) | DRG 807 ==
LOC: WFO 17:04 → FBP 17:05 → WFO 17:33
PROVIDERS: ADMIT Obstetrics & Gynecology; ATTEND Obstetrics & Gynecology
PROC: 10E0XZZ Delivery of Products of Conception, External Approach (ICD-10-PCS; principal; 2022-10-27)
DX: O62.3 Precipitate labor (principal); Z37.0 Single live birth; Z3A.38 38 weeks gestation of pregnancy; O99.344 Other mental disorders complicating childbirth; F32.A Depression, unspecified; O34.83 Maternal care for other abnormalities of pelvic organs, third trimester; N80.00 Endometriosis of the uterus, unspecified; O69.81X0 Labor and delivery complicated by cord around neck, without compression, not applicable or unspecified; Z80.3 Family history of malignant neoplasm of breast; Z82.49 Family history of ischemic heart disease and other diseases of the circulatory system; Z83.3 Family history of diabetes mellitus; Z90.49 Acquired absence of other specified parts of digestive tract
CPT/HCPCS: 85025; 86850; 86900; 86901; A9270; J7120; 99215

== ENCOUNTER 2023-01-09 09:17 | Emergency (ER) | payer OTHER ==
[2023-01-09 09:26] VITALS: BP 117/71
--- NOTE | 2023-01-09 09:52 | ED Physician Documentation ---
PD HPI LOWER EXT INJURY - Stated complaint Stated Complaint: RT FOOT INJ - Chief complaint Chief Complaint: Trauma Ext - History obtained from History obtained from: Patient - History of Present Illness PD HPI LOW EXT INJURY LOCATION: Right, Toe Type of injury: Blunt / blow (tripped over luggage (her sister or such is visitng and some stuff was in walking path), and jammed little toe forcefully into object. Pain and swelling/bruising at base of little toe.) Where injury occurred: Home Timing - onset: Last night Worsened by: Moving, Palpating Associated symptoms: Swelling, Discolored Similar symptoms before: Has not had sx before Review of Systems Skin: denies: Abrasion (s), Laceration (s) Neurologic: denies: Focal weakness, Numbness PD PAST MEDICAL HISTORY - Allergies Allergies/Adverse Reactions: Allergies Allergy/AdvReac Type Severity Reaction Status Date / Time metoclopramide Allergy Diaphoresis Verified 01/09/23 09:26 - Social History Smoking Status: Never smoker PD ED PE NORMAL - Vitals Vital signs reviewed: Yes - General General: No acute distress, Well developed/nourished - Derm Derm: Normal color, Warm and dry - Extremities Extremities: Other (rigtht great toe with swelling, ecchymosis and tenderness at proximal phalanx. No gross deformity. Good cap refill. ) - Neuro Neuro: No motor deficit, No sensory deficit Results - Vitals Vitals: Vital Signs - 24 hr 01/09/23 09:24 Temperature 36.0 C L Heart Rate 78 Respiratory 20 Rate Blood Pressure 117/71 O2 Saturation 99 Oxygen O2 Source Room air - Rads (name of study) foot xray Relevant Findings:: Prelim report reviewed, EMP independent interpretation of test (fracture at proximal phalanx shaft little toe. nondipslaced. ) PD Medical Decision Making - ED course Complexity details: reviewed results, considered differential (jammed toe forcefully and has pain base of little toe. Xray shows fracture. ), d/w patient Departure - Departure Disposition: 01 Home, Self Care Clinical Impression: Toe fracture, right Condition: Stable Record reviewed to determine appropriate education?: Yes Instructions: ED Fx Toe Closed Comments: You do have a fracture of the phalanx of the little toe. It is in the shaft area and not the joint. It should heal okay with immobility and time. Ice elevate and rest to reduce the swelling particularly the next couple of days. Tylenol or ibuprofen as needed for pains. Try to mobilize the toe to help with comfort and pain. This could be done by taping and firm soled shoe. The initial worst pain should improve over several days as the swelling goes down and then again at a week to week and a half with the initial bone bridging so there is less movement of the bone. However will take 4-week timeframe for good healing. Progress weightbearing in activity as tolerated. Discharge Date/Time: 01/09/23 10:22
--- NOTE | 2023-01-09 09:52 | XRAY Report ---
PROCEDURE: Foot 3 View RT INDICATIONS: Trauma TECHNIQUE: 3 views of the foot were acquired. COMPARISON: None. FINDINGS: Bones: Acute oblique fracture through fifth proximal phalangeal shaft is seen with slight medial dis placement at fracture site. No other fracture or dislocation. No suspicious bony lesions. Soft tissues: No suspicious soft tissue calcifications or masses. IMPRESSION: Acute slightly displaced oblique fracture through fifth proximal phalangeal shaft as above. Reviewed by: Den Henning MD on 01/09/2023 9:51 AM PDT Approved by: Den Henning MD on 01/09/2023 9:51 AM PDT Station ID: [id number]
== END 2023-01-09 10:22 | disposition home or self-care (01) ==
LOC: ED 09:17
DX: S92.511A Displaced fracture of proximal phalanx of right lesser toe(s), initial encounter for closed fracture (principal); W22.8XXA Striking against or struck by other objects, initial encounter
CPT/HCPCS: 99283